=== PATIENT | female | born 1970 | race Asian ===

== ENCOUNTER 2017-06-03 22:07 | Emergency (ER) | payer BC, OTHER ==
[~2017-06-03] VITALS: Ht 152.4 cm; Wt 45.4 kg
[~2017-06-03 22:07] MED LIST: PROAIR
[2017-06-03 22:15] VITALS: BP_SYST 107
[2017-06-03] MEDS ORDERED: CYCLOBENZAPRINE HCL 10 MG TABLET (FLEXERIL) PO ONE (22:45)
[2017-06-03] MEDS ORDERED: KETOROLAC TROMETHAMINE 30 MG VIAL IM ONE (22:45)
[2017-06-03 23:26] VITALS: BP_SYST 107
== END 2017-06-03 23:26 | disposition home or self-care (01) ==
LOC: SED 22:07
DX: S70.12XA Contusion of left thigh, initial encounter (principal); Z98.51 Tubal ligation status; X58.XXXA Exposure to other specified factors, initial encounter; Y93.89 Activity, other specified; Y92.89 Other specified places as the place of occurrence of the external cause; Y99.8 Other external cause status
CPT/HCPCS: 73552; 81025; 96372; 99284; J1885

== ENCOUNTER 2019-11-26 23:02 | Emergency (ER) | payer OTHER ==
[~2019-11-26] VITALS: Ht 152.4 cm; Wt 47.2 kg
[2019-11-26 23:10] VITALS: BP_SYST 102
[2019-11-27] MEDS ORDERED: IPRATROPIUM BROM 0.5 MG/2.5 ML VIAL.NEB (ATROVENT) INH ONE
[2019-11-27] MEDS ORDERED: PREDNISONE 20 MG TABLET PO ONE
[2019-11-27] MEDS ORDERED: LevALBUTEROL HCL 1.25 MG/0.5 ML *CONC.* VIAL.NEB (XOPENEX CONC.) INH ONE
[2019-11-27 01:27] VITALS: BP_SYST 99
== END 2019-11-27 01:27 | disposition home or self-care (01) ==
LOC: SED 23:02
DX: J45.901 Unspecified asthma with (acute) exacerbation (principal)
CPT/HCPCS: 94640; 99283; J7512; J7612